=== PATIENT | male | born 1975 ===

== ENCOUNTER 2021-01-03 15:43 | Emergency (ER) | payer SELFPAY ==
[2021-01-03] MEDS ORDERED: BACTRIM DS TAB1 EACH PO (17:57)
[2021-01-03] MEDS ORDERED: CEPHALEXIN500 MG PO (17:57)
== END 2021-01-03 18:13 | disposition home or self-care (01) ==
LOC: FER 15:43
DX: S80.861A Insect bite (nonvenomous), right lower leg, initial encounter (principal); W57.XXXA Bitten or stung by nonvenomous insect and other nonvenomous arthropods, initial encounter
CPT/HCPCS: 99281